=== PATIENT | male | born 1945 | race Caucasian/White ===

== ENCOUNTER 2023-01-20 09:23 | Emergency (ER) | payer MEDICARE ==
[~2023-01-20] VITALS: Ht 185.4 cm; Wt 77.3 kg
[2023-01-20] MEDS ORDERED: SIME180C25 PO (09:59)
[2023-01-20] MEDS ORDERED: PANT40TA29 PO (09:59)
[2023-01-20] MEDS ORDERED: PROB250C PO (10:00)
[2023-01-20] MEDS ORDERED: VITAD400CA FT (10:02)
[2023-01-20] MEDS ORDERED: statin PO (10:04)
[2023-01-20] MEDS ORDERED: COQ150CH PO (10:04)
[2023-01-20] MEDS ORDERED: VITMTA PO (10:04)
[2023-01-20] MEDS ORDERED: ACET500P3 PO (10:06)
[2023-01-20] MEDS ORDERED: LISI10TA22 PO (10:06)
[2023-01-20 10:59] LABS: BASO % 0.3 % (0.0-1.0); EOS % 0.1 % (0.0-3.0); HEMATOCRIT 39.5 % (42.0-52.0); HEMOGLOBIN 13.2 g/dl (13.5-17.5); LYMPH # 0.5 10^3/uL (1.5-5.0); LYMPH % 4.4 % (24.0-44.0); MEAN CORPUSCULAR HEMOGLOBIN 31.1 pg (27.0-33.0); MEAN CORPUSCULAR HGB CONC 33.4 g/dl (32.0-36.5); MEAN CORPUSCULAR VOLUME 93.2 fl (80.0-96.0); MONO # 0.9 10^3/uL (0.0-0.8); MONO % 8.5 % (2.0-8.0); NEUTROPHILS # 9.4 10^3/uL (1.5-8.5); NEUTROPHILS % 86.2 % (36.0-66.0); PLATELET COUNT, AUTOMATED 193 10^3/uL (150-450); RED BLOOD COUNT 4.24 10^6/uL (4.30-6.10); WHITE BLOOD COUNT 10.9 10^3/uL (4.0-10.0)
[2023-01-20] MEDS ORDERED: ISOVUE-370 76% 100ML VIAL As Ordered ONE (11:00)
[2023-01-20 11:31] LABS: ALBUMIN 3.3 G/DL (3.2-5.2); ALKALINE PHOSPHATASE 56 U/L (46-116); ALT/SGPT 34 U/L (7.0-40); AST/SGOT 37 U/L (<34); BILIRUBIN,TOTAL 1.4 MG/DL (0.3-1.2); BLOOD UREA NITROGEN 20 MG/DL (9-23); CARBON DIOXIDE LEVEL 28 MMOL/L (20-31); CHLORIDE LEVEL 103 MMOL/L (98-107); CREATININE FOR GFR 0.99 MG/DL (0.70-1.30); GLOMERULAR FILTRATION RATE > 60.0 (>42); GLUCOSE, FASTING 115 MG/DL (74-106); POTASSIUM SERUM 4.4 MMOL/L (3.5-5.1); SODIUM LEVEL 136 MMOL/L (136-145); TOTAL PROTEIN 5.6 G/DL (5.7-8.2)
[2023-01-20] MEDS ORDERED: ONDANSETRON 4MG 2ML VIAL IV ONE (12:05)
[2023-01-20] MEDS: MORPHINE 4 MG/ML 1ML VIAL IV PRN ×2 (12:11→17:34)
[2023-01-20 17:15] VITALS: BP 123/71
== END 2023-01-20 17:42 | disposition short-term general hospital (02) ==
LOC: EDBD 09:23 → M ED 09:23
DX: S27.0XXA Traumatic pneumothorax, initial encounter (principal); S22.42XA Multiple fractures of ribs, left side, initial encounter for closed fracture; S22.089A Unspecified fracture of T11-T12 vertebra, initial encounter for closed fracture; S32.019A Unspecified fracture of first lumbar vertebra, initial encounter for closed fracture; S32.029A Unspecified fracture of second lumbar vertebra, initial encounter for closed fracture; S32.039A Unspecified fracture of third lumbar vertebra, initial encounter for closed fracture; S32.049A Unspecified fracture of fourth lumbar vertebra, initial encounter for closed fracture; W11.XXXA Fall on and from ladder, initial encounter; Y92.096 Garden or yard of other non-institutional residence as the place of occurrence of the external cause; I10 Essential (primary) hypertension; E78.9 Disorder of lipoprotein metabolism, unspecified; J30.1 Allergic rhinitis due to pollen; Z79.899 Other long term (current) drug therapy
CPT/HCPCS: 71045; 71260; 72125; 72128; 72131; 74176; 80053; 85025; 87635; 93005; 96374; 96375; 96376; 99285; J2405; Q9967